=== PATIENT | female | born 1945 | race African-American/Black ===

== ENCOUNTER 2019-07-31 13:24 | Emergency (ER) | payer MEDICARE ==
[2019-07-31 13:43] LABS: ABSOLUTE LYMPHOCYTES (AUTO) 1.2 10^3/uL (0.5-4.7); ABSOLUTE MONOCYTES (AUTO) 0.3 10^3/uL (0.1-1.4); ABSOLUTE NEUT (AUTO) 5.7 10^3/uL (1.7-8.2); BASOPHILS % (AUTO) 0.6 % (0-2); HEMATOCRIT 44.3 % (36.0-47.0); HEMOGLOBIN 15.5 g/dL (12.0-15.5); LYMPHOCYTES % (AUTO) 16.8 % (13-45); MEAN CORPUSCULAR HEMOGLOBIN 32.4 pg (27.0-33.4); MEAN CORPUSCULAR HGB CONC 34.9 g/dL (32.0-36.0); MEAN CORPUSCULAR VOLUME 93 fl (80-97); MONOCYTES % (AUTO) 4.7 % (3-13); PLATELET COUNT 296 10^3/uL (150-450); RED BLOOD COUNT 4.78 10^6/uL (3.72-5.28); RED CELL DISTRIBUTION WIDTH 13.9 % (11.5-14.0); SEGMENTED NEUTROPHILS % (AUTO) 77.9 % (42-78); TOTAL CELLS COUNTED % (AUTO) 100 %; WHITE BLOOD COUNT 7.3 10^3/uL (4.0-10.5)
[2019-07-31 14:08] LABS: ALBUMIN 4.6 g/dL (3.5-5.0); ALKALINE PHOSPHATASE 58 U/L (38-126); ANION GAP 12 (5-19); ASPARTATE AMINO TRANSFERASE 24 U/L (14-36); BILIRUBIN,TOTAL 0.6 mg/dL (0.2-1.3); BLOOD UREA NITROGEN 9 mg/dL (7-20); CALCIUM 9.7 mg/dL (8.4-10.2); CARBON DIOXIDE 28 mmol/L (22-30); CHLORIDE 97 mmol/L (98-107); GLUCOSE 163 mg/dL (75-110); POTASSIUM 3.4 mmol/L (3.6-5.0); TOTAL PROTEIN 7.6 g/dL (6.3-8.2)
[2019-07-31] MEDS ORDERED: ONDANSETRON HCL INJ/PF 4 MG/2 ML SDV IV ONE ×2 (15:05→18:02)
--- NOTE | 2019-07-31 15:24 | ER Document Report ---
ED General - General Chief Complaint: Nausea/Vomiting Stated Complaint: VOMITING Time Seen by Provider: 07/31/19 14:33 Notes: 73-year-old female presents the emergency department complaining that she is having an anxiety attack. Patient states that she was watching the news on Monday and she became very anxious, then developed nausea, vomiting and diarrhea, complained of lower abdominal pain to the nurses but denies any abdominal pain to me. States she has not been able to tolerate oral intake since then, but does note that she has been able to keep her pills down every morning. Aside from that she has not been able to keep anything down. Patient states that she developed tightness in her chest today which is unusual for her anxiety attacks. Is not associate with shortness of breath, it does not radiate. She denies any coughs or chills. States that the nausea and vomiting are actually typical of her anxiety attacks, states it usually resolves with [place] however this time the [place] has not been working. Patient states she had a "total heart work-up" in May in [place], states that she did have a stress test and it was negative. Denies heart cath. Mother of an IL at 70 years old. - Related Data Allergies/Adverse Reactions: No Known Allergies Allergy (Unverified 07/31/19 13:59) Past Medical History - General Information source: Patient - Social History Smoking Status: Never Smoker Frequency of alcohol use: None Drug Abuse: None Family History: CAD - Mother had an IL at 70 years old. Patient has suicidal ideation: No Patient has homicidal ideation: No Review of Systems - Review of Systems Constitutional: No symptoms reported EENT: No symptoms reported Cardiovascular: See HPI, Chest pain Respiratory: No symptoms reported Gastrointestinal: See HPI, Abdominal pain - Admits to nursing, denies to me., Diarrhea, Nausea, Vomiting Neurological/Psychological: See HPI, Anxiety -: Yes All other systems reviewed and negative Physical Exam - Vital signs Vitals: Resp Pulse Ox 18 96 07/31/19 13:34 07/31/19 13:34 - Notes Notes: GENERAL: Alert, interacts well. No acute distress. HEAD: Normocephalic, atraumatic EYES: Pupils equal, round and reactive to light, extraocular movements intact. ENT: Oral mucosa moist, tongue midline. NECK: Full range of motion, supple, trachea midline. LUNGS: Clear to auscultation bilaterally, no wheezes, rales or rhonchi, no respiratory distress. HEART: Regular rate and rhythm, no murmurs, gallops, rubs. ABDOMEN: Soft, nontender, nondistended, bowel sounds present in all 4 quadrants. EXTREMITIES: Moves all 4 extremities spontaneously, no edema, radial and dorsalis pedis pulses 2/4 bilaterally. No cyanosis. NEUROLOGICAL: Alert and oriented x3, normal speech. PSYCH: Normal mood, normal affect. SKIN: Warm, Dry, normal turgor, no rashes or lesions noted. Course - Re-evaluation Re-evalutation: 07/31/19 17:55 CBC unremarkable, CMP shows slight low potassium 3.4, slightly elevated glucose at 163, troponin negative x2, chest x-ray showed possible retrocardiac op acities, given patient's chest pain I did order a CTA to further evaluate for possible PE but also to get a better look at these opacities, there is no pulmonary embolism and there is no evidence of these opacities on the CAT scan. No indication for antibiotics. Patient has been able to tolerate oral intake here after Zofran, no further vomiting, no evidence of acute coronary syndrome, negative stress test reported by patient in May. Patient will be discharged to home with Zofran. Given the fact that she has not needed anything for anxiety in 25 years I am not opposed to giving the patient a prescription for 2 mg of Valium to be used once a day as needed for anxiety attack, #10. - Vital Signs Vital signs: Temp Pulse Resp BP Pulse Ox 12 119/78 93 07/31/19 16:01 07/31/19 16:01 07/31/19 16:01 - Laboratory Result Diagrams: 07/31/19 13:32 07/31/19 13:32 Laboratory results interpreted by me: 07/31/19 13:32 Potassium 3.4 L Chloride 97 L Glucose 163 H - EKG Interpretation by Me Additional EKG results interpreted by me: 07/31/19 15:27 EKG shows sinus rhythm at a rate of 74, left axis deviation, normal intervals, LVH, 1 PVC, no ST segment elevations or depressions, there are T wave inversions noted in 3, aVF, V2 through V6, no old EKG available for comparison per my interpretation. Discharge - Discharge Clinical Impression: Nausea vomiting and diarrhea, Chest pain with low risk for cardiac etiology, Hypokalemia, Anxiety Condition: Stable Disposition: HOME, SELF-CARE Additional Instructions: Today we did not find any evidence of a heart attack. Please follow-up with your primary care physician as an outpatient. I have prescribed you Zofran, this is a pill that dissolves under your tongue to treat your nausea. It is the same medication we used through your IV here. You may use Imodium as directed [id number] for your diarrhea. I have prescribed you a limited number of Valium. This can be used once a day as needed for anxiety. Prescriptions: Diazepam [Valium 2 mg Tablet] 2 mg PO DAILYP PRN #10 tablet PRN Reason: Ondansetron [Zofran Odt 4 mg Tablet] 1 tab PO Q4H PRN #10 tab.rapdis PRN Reason: For Nausea/Vomiting
[2019-07-31] MEDS ORDERED: HYDROXYZINE PAMOATE 25 MG CAPSULE PO ONE (15:28)
--- NOTE | 2019-07-31 15:29 | RADIOLOGY REPORT (SQ) ---
EXAM DESCRIPTION: CHEST 2 VIEWS IMAGES COMPLETED DATE/TIME: 07/31/2019 3:19 pm REASON FOR STUDY: chest tightness COMPARISON: None. EXAM PARAMETERS: NUMBER OF VIEWS: two views TECHNIQUE: Digital Frontal and Lateral radiographic views of the chest acquired. RADIATION DOSE: NA LIMITATIONS: none FINDINGS: LUNGS AND PLEURA: Eventration of the right hemidiaphragm. Mild Ill-defined retrocardiac o pacities. No dense consolidation. No pleural effusion or pneumothorax. MEDIASTINUM AND HILAR STRUCTURES: No masses or contour abnormalities. HEART AND VASCULAR STRUCTURES: Normal heart size. Ectatic thoracic aorta. BONES: No acute findings. HARDWARE: None in the chest. OTHER: No other significant finding. IMPRESSION: Mild ill-defined retrocardiac opacities possibly atelectatic change or developing infilt rate. TECHNICAL DOCUMENTATION: JOB ID: [id number] 2010 [employer]- All Rights Reserved Reading location - IP/workstation name: [email or web address]
--- NOTE | 2019-07-31 16:53 | RADIOLOGY REPORT (SQ) ---
EXAM DESCRIPTION: CTA CHEST IMAGES COMPLETED DATE/TIME: 07/31/2019 3:27 pm REASON FOR STUDY: chest tightness, r/o PE COMPARISON: None. TECHNIQUE: CT scan of the chest performed using helical scanning technique with dynamic intravenous contrast injection. Images reviewed with lung, soft tissue and bone windows. Reconstructed coronal and sagittal MPR images reviewed. Additional 3 dimensional post-processing performed to develop Maximal Intensity Projection images (WA P). All images stored on PACS. All CT scanners at this facility use dose modulation, iterative reconstruction, and/or weight based d osing when appropriate to reduce radiation dose to as low as reasonably achievable (ALARA). [facility]: Dose Right [facility]: CareDose [facility]: Dose Right [facility]: Teradose 4D [facility]: [employer] CONTRAST TYPE AND DOSE: contrast/concentration: Isovue 350.00 mg/ml; Total Contrast Delivered: 65.0 ml; Total Saline Delivered: 71.0 ml Contrast bolus optimized for the pulmonary arteries. Not diagnostic for the aorta. RENAL FUNCTION: GFR > 60. RADIATION DOSE: CT Rad equipment meets quality standard of care and radiation dose reduction techniq ues were employed. CTDIvol: 13.2 - 21.8 mGy. DLP: 777 mGy-cm. . LIMITATIONS: None. FINDINGS: LUNGS AND PLEURA: No masses, infiltrates, or pneumothorax. No pleural effusions or pleura l calcifications. AORTA AND GREAT VESSELS: No aneurysm. Contrast bolus not optimized for the aorta. HEART: Moderate cardiomegaly. No pericardial effusion. No significant coronary artery calcifications . PULMONARY ARTERIES: The pulmonary arteries are enlarged with main pulmonary artery measuring 32 mm di ameter, right pulmonary artery measuring 31 mm diameter, and left pulmonary artery measuring 28 mm di ameter. There is no pulmonary embolism. HILAR AND MEDIASTINAL STRUCTURES: No identified masses or abnormal nodes. HARDWARE: None in the chest. UPPER ABDOMEN: No significant findings. Limited exam. THYROID AND OTHER SOFT TISSUES: No masses. No adenopathy. BONES: No acute or significant finding. 3D MIPS: Confirm above findings. OTHER: No other significant finding. IMPRESSION: 1. No pulmonary embolism. No acute pulmonary disease. 2. Moderate cardiomegaly. 3. Enlargement of the pulmonary arteries which can be seen with pulmonary arterial hypertension. Ech ocardiogram may provide additional information. COMMENT: Quality ID # [id number]: Final reports with documentation of one or more dose reduction techniques (e.g., Automated exposure control, adjustment of the mA and/or kV according to patient size, use of iterative reconstruction technique) TECHNICAL DOCUMENTATION: JOB ID: [id number] 2010 [employer]- All Rights Reserved Reading location - IP/workstation name: [email or web address]
[2019-07-31] MEDS ORDERED: POTASSIUM CHLORIDE 10 MEQ TABLET.ER PO ONE (17:56)
[2019-07-31] MEDS ORDERED: DIAZEPAM 2 MG TABLET PO ONE (18:02)
[2019-07-31 18:06] LABS: APPEARANCE,URINE SLIGHTLY-CLOUDY; BILIRUBIN,URINE NEGATIVE (NEGATIVE); COLOR,URINE YELLOW; GLUCOSE, URINE NEGATIVE (NEGATIVE); KETONES,URINE NEGATIVE (NEGATIVE); LEUKOCYTE ESTERASE,URINE NEGATIVE (NEGATIVE); NITRITE,URINE NEGATIVE (NEGATIVE); PROTEIN,URINE NEGATIVE (NEGATIVE); UROBILINOGEN,URINE NEGATIVE mg/dL (<2.0)
[2019-07-31 18:37] VITALS: BP 120/74
--- NOTE | 2019-08-01 09:32 | EKG REPORT ---
SEVERITY:- ABNORMAL ECG - SINUS RHYTHM VENTRICULAR PREMATURE COMPLEX ABERRANT COMPLEX, POSSIBLY SUPRAVENTRICULAR LEFT AXIS DEVIATION LEFT VENTRICULAR HYPERTROPHY BORDERLINE T ABNORMALITIES, INFERIOR LEADS : Confirmed by: Erica Reyes 01-Aug-2019 09:30:23
== END 2019-07-31 18:40 | disposition home or self-care (01) ==
LOC: ER 13:24
DX: F41.9 Anxiety disorder, unspecified (principal); R07.89 Other chest pain; R11.2 Nausea with vomiting, unspecified; R19.7 Diarrhea, unspecified; E87.6 Hypokalemia; I49.3 Ventricular premature depolarization; I51.7 Cardiomegaly; Z82.49 Family history of ischemic heart disease and other diseases of the circulatory system
CPT/HCPCS: 93005; 96376; 99285; 96374; 36415; 85025; 80053; 81001; 84484; 71046; 71275; 93010; A9270 ×3; J2405; J3490